=== PATIENT | male | born 1965 | race Caucasian/White ===

== ENCOUNTER 2022-11-08 13:56 | Outpatient (CLI) | payer BC, SELFPAY | END 2022-11-08 13:57 | disposition home or self-care (01) | PROVIDERS: PCP Family Medicine; Visit Provider Family Medicine | DX: Z00.00 Encounter for general adult medical examination without abnormal findings (principal); I10 Essential (primary) hypertension; E03.9 Hypothyroidism, unspecified | CPT/HCPCS: 80048; 84443 ==

== ENCOUNTER 2022-11-26 12:09 | Outpatient (CLI) | payer BC, SELFPAY | END 2022-11-26 12:10 | disposition home or self-care (01) | LOC: LONREF 12:10 | PROVIDERS: PCP Family Medicine; Visit Provider Family Medicine | DX: Z13.89 Encounter for screening for other disorder (principal) | CPT/HCPCS: 87086 ==

== ENCOUNTER 2023-12-16 12:55 | Outpatient (CLI) | payer BC, SELFPAY ==
--- OUTSIDE RECORDS SUMMARY | 2024-01-09 15:05 | XMS_ITS | Continuity of Care Document ---
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 It does not include entries that were removed or entered in error. 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 [facility] Diagnosis: ICD-10-CM Z71.89 Other specified counseling Active Diagnosis [facility] Diagnosis: ICD-10-CM G47.09 Other insomnia Active Diagnosis [facility] Diagnosis: ICD-10-CM Z00.00 Encntr for general adult medical exam w/o abnormal findings Active Diagnosis [facility] Diagnosis: ICD-10-CM Z79.899 Other snf (current) drug therapy Active Diagnosis [facility] Diagnosis: ICD-10-CM Z02.89 Encounter for other administrative examinations Active Diagnosis [facility] Medications Combined list of outpatient medications from [facility] and [facility] facilities.Medications provided include 1) outpatient medications from the last 15 months, and 2) patient-reported medications. Medication Details Route Status Patient Instructions Prescription Expires Prescription Number Last Dispense Date Ordering Provider Order Date Order Qty Source AMLODIPINE BESYLATE 10MG/BENAZE PRIL HCL 20MG CAP TAKE 1 CAPSULE BY MOUTH DAILY FOR HIGH BLOOD PRESSURE ORAL ACTIVE 04/01/2024 [id number] Astrid CHAVARRIA 2022 90 [facility] ASCORBIC ACID 500MG TAB TAKE TWO TABLETS BY MOUTH DAILY FOR VITAMIN C SUPPLEME NT ORAL ACTIVE 04/01/2024 [id number] Astrid CHAVARRIA 2022 200 [facility] ASCORBIC ACID TAB TAKE BY MOUTH DAILY NEEDED ORAL ACTIVE ROMARIO CAZARES 2022 [facility] LEVOTHYROXI NE NA 137MCG TAB (SYNTHROID) TAKE ONE TABLET BY MOUTH DAILY FOR HYPOTHYR OIDISM ON AN EMPTY STOMACH ORAL ACTIVE 04/01/2024 [id number] Astrid CHAVARRIA 2022 90 [facility] MULTIVITAMI N/MINERALS SENIOR FORMULA TAB TAKE 1 TABLET BY MOUTH DAILY FOR VITAMIN SUPPLEME NT ORAL ACTIVE 04/01/2024 [id number] Astrid CHAVARRIA 2022 120 [facility] MULTIVITAMI N/MINERALS SENIOR FORMULA TAB TAKE ONE TABLET BY MOUTH DAILY ORAL ACTIVE ROMARIO CAZARES 2022 [facility] NAPROXEN TAB TAKE BY MOUTH DAILY NEEDED ORAL ACTIVE ROMARIO CAZARES E 2022 [facility] TRAZODONE HCL 100MG TAB TAKE ONE TABLET BY MOUTH NIGHTLY FOR SLEEP ORAL ACTIVE 04/01/2024 [id number] Astrid CHAVARRIA 2022 90 [facility] Immunizations Combined list of available immunizations from the Department of Defense and [facility] facilities. 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 Status Comments Source INFLUENZA, INJECTABLE, QUADRIVALENT, PRESERVATIVE FREE 2021 150 complet ed [facility] INFLUENZA, INJECTABLE, QUADRIVALENT, PRESERVATIVE FREE 2020 150 complet [facility] ZOSTER RECOMBINANT 2 2020 187 complet [facility] COVID-19 (MARIZOL), VECTOR-NR, RS-AD26, PF, 0.5 ML 2020 212 complet [facility] COVID-19 (MARIZOL), VECTOR-NR, RS-AD26, PF, 0.5 ML 2020 212 complet ed [facility] INFLUENZA, INJECTABLE, MDCK, PRESERVATIVE FREE, QUADRIVALENT 2019 171 complet [facility] INFLUENZA, INJECTABLE, QUADRIVALENT, PRESERVATIVE FREE 2018 150 complet ed [facility] PNEUMOCOCCAL POLYSACCHARID E PPV23 2017 33 complet ed [facility] ZOSTER RECOMBINANT 2017 187 complet [facility] PNEUMOCOCCAL POLYSACCHARID E PPV23 2017 33 complet ed [facility] ZOSTER RECOMBINANT 1 2017 187 complet ed [facility] INFLUENZA, INJECTABLE, QUADRIVALENT, PRESERVATIVE FREE 2016 150 complet ed [facility] INFLUENZA, INJECTABLE, QUADRIVALENT, PRESERVATIVE FREE 2015 150 complet ed [facility] INFLUENZA, UNSPECIFIED FORMULATION 2014 88 complet ed [facility] TDAP 2014 115 complet ed [facility] INFLUENZA, UNSPECIFIED FORMULATION 2013 88 complet ed [facility] INFLUENZA, SEASONAL, INJECTABLE, PRESERVATIVE FREE 2012 140 complet ed [facility] Results Combined list of recent chemistry, hematology and other laboratory results from Department of Defense and Veterans Affairs, ranging from 15 months to all on record, depending upon the facility. Order Name Results Value Reference Range Date Interpretation Specimen Comments Source HEPATITIS B CORE ANTIBODY (IGM/IGG) HEPATITIS B VIRUS CORE AB [PRESENCE] IN SERUM NEGATIVE 04/01 Specimen Type: SERUM Comment: Positive ANTI-HBc(TO [facility]) will be tested for IgM antibody to Hepatitis B virus core antigen. Ordering Provider: IMANI CHAVARRIA Report Released Date/Time: Apr 01, 2023 11:18 AM Reporting Lab: [address] Performing Lab: [facility] [id number] [facility] [place] [place] MET. PANEL CREATININE [MASS/VOLUM E] IN SERUM OR PLASMA 1.1 0.5 - 1.5 04/01 Specimen Type: PLASMA Comment: Glucose results >300 mg/dL OR Total Protein >10 g/dL may interfere with Creatinine result Ordering Provider: IMANI CHAVARRIA Report Released Date/Time: Feb 23, 2023 10:53 AM Reporting Lab: [address] Performing Lab: [address] [facility] MET. PANEL UREA NITROGEN [MASS/VOLUM E] IN SERUM OR PLASMA 18 5 - 23 04/01 Specimen Type: PLASMA Comment: Glucose results >300 mg/dL OR Total Protein >10 g/dL may interfere with Creatinine result Ordering Provider: IMANI CHAVARRIA Report Released Date/Time: Feb 23, 2023 10:53 AM Reporting Lab: [address] Performing Lab: [address] [facility] [place] [place] MET. PANEL SODIUM [MOLES/VOLU ME] IN SERUM OR PLASMA 141 136 - 145 04/01 Specimen Type: PLASMA Comment: Glucose results >300 mg/dL OR Total Protein >10 g/dL may interfere with Creatinine result Ordering Provider: IMANI CHAVARRIA Report Released Date/Time: Feb 23, 2023 10:53 AM Reporting Lab: [address] Performing Lab: [address] [facility] [place] MET. PANEL POTASSIUM [MOLES/VOLU ME] IN SERUM OR PLASMA 4.6 3.5 - 5.0 04/01 Specimen Type: PLASMA Comment: Glucose results >300 mg/dL OR Total Protein >10 g/dL may interfere with Creatinine result Ordering Provider: IMANI CHAVARRIA Report Released Date/Time: Feb 23, 2023 10:53 AM Reporting Lab: [address] Performing Lab: [address] [facility] [place] MET. PANEL CHLORIDE [MOLES/VOLU ME] IN SERUM OR PLASMA 105 98 - 107 04/01 Specimen Type: PLASMA Comment: Glucose results >300 mg/dL OR Total Protein >10 g/dL may interfere with Creatinine result Ordering Provider: IMANI CHAVARRIA Report Released Date/Time: Feb 23, 2023 10:53 AM Reporting Lab: [address] Performing Lab: [address] [facility] [place] MET. PANEL CARBON DIOXIDE, TOTAL [MOLES/VOLU ME] IN SERUM OR PLASMA 29 20 - 30 04/01 Specimen Type: PLASMA Comment: Glucose results >300 mg/dL OR Total Protein >10 g/dL may interfere with Creatinine result Ordering Provider: IMANI CHAVARRIA Report Released Date/Time: Feb 23, 2023 10:53 AM Reporting Lab: [address] Performing Lab: [address] [facility] COMPREHEN RIDDHI MET. PANEL CALCIUM [MASS/VOLUM E] IN SERUM OR PLASMA 9.6 8.4 - 10.4 04/01 Specimen Type: PLASMA Comment: Glucose results >300 mg/dL OR Total Protein >10 g/dL may interfere with Creatinine result Ordering Provider: IMANI CHAVARRIA Report Released Date/Time: Feb 23, 2023 10:53 AM Reporting Lab: [address] Performing Lab: [address] [facility] COMPREHBRITTA HANNON MET. PANEL PROTEIN [MASS/VOLUM E] IN SERUM OR PLASMA 7.3 6.0 - 8.2 04/01 Specimen Type: PLASMA Comment: Glucose results >300 mg/dL OR Total Protein >10 g/dL may interfere with Creatinine result Ordering Provider: IMANI CHAVARRIA Report Released Date/Time: Feb 23, 2023 10:53 AM Reporting Lab: [address] Performing Lab: [address] [facility] COMPREHBRITTA HANNON MET. PANEL ALBUMIN [MASS/VOLUM E] IN SERUM OR PLASMA 4.1 3.5 - 5.0 04/01 Specimen Type: PLASMA Comment: Glucose results >300 mg/dL OR Total Protein >10 g/dL may interfere with Creatinine result Ordering Provider: IMANI CHAVARRIA Report Released Date/Time: Feb 23, 2023 10:53 AM Reporting Lab: [address] Performing Lab: [address] [facility] COMPREHEN SIVArcenio MET. PANEL BILIRUBIN.T OTAL [MASS/VOLUM E] IN SERUM OR PLASMA 0.5 0.1 - 1.5 04/01 Specimen Type: PLASMA Comment: Glucose results >300 mg/dL OR Total Protein >10 g/dL may interfere with Creatinine result Ordering Provider: IMANI CHAVARRIA Report Released Date/Time: Feb 23, 2023 10:53 AM Reporting Lab: [address] Performing Lab: [address] [facility] COMPREHBR[facility]TA [facility]ANNON MET. PANEL ALKALINE PHOSPHATASE [ENZYMATIC ACTIVITY/VO LUME] IN SERUM OR PLASMA 87 40 - 134 04/01 Specimen Type: PLASMA Comment: Glucose results >300 mg/dL OR Total Protein >10 g/dL may interfere with Creatinine result Ordering Provider: IMANI CHAVARRIA Report Released Date/Time: Feb 23, 2023 10:53 AM Reporting Lab: [address] Performing Lab: [address] [facility] COMPREHBRITTA HANNON MET. PANEL ASPARTATE AMINOTRANSF ERASE [ENZYMATIC ACTIVITY/VO LUME] IN SERUM OR PLASMA 21 5 - 40 04/01 Specimen Type: PLASMA Comment: Glucose results >300 mg/dL OR Total Protein >10 g/dL may interfere with Creatinine result Ordering Provider: IMANI CHAVARRIA Report Released Date/Time: Feb 23, 2023 10:53 AM Reporting Lab: [address] Performing Lab: [address] [facility] COMPREHBRITTA HANNON MET. PANEL ALANINE AMINOTRANSF ERASE [ENZYMATIC ACTIVITY/VO LUME] IN SERUM OR PLASMA 18 0 - 55 04/01 Specimen Type: PLASMA Comment: Glucose results >300 mg/dL OR Total Protein >10 g/dL may interfere with Creatinine result Ordering Provider: IMANI CHAVARRIA Report Released Date/Time: Feb 23, 2023 10:53 AM Reporting Lab: [address] Performing Lab: [place] [id number] [facility] COMPREHEN SIVE MET. PANEL GLUCOSE [MASS/VOLUM E] IN SERUM OR PLASMA 108 70 - 180 04/01 Specimen Type: PLASMA Comment: Glucose results >300 mg/dL OR Total Protein >10 g/dL may interfere with Creatinine result Ordering Provider: IMANI CHAVARRIA Report Released Date/Time: Feb 23, 2023 10:53 AM Reporting Lab: [facility] [address] [facility] Performing Lab: [facility] [address] [facility] COMPREHEN [place] MET. PANEL GLOMERULAR FILTRATION RATE/1.73 SQ M.PREDICTED [VOLUME RATE/AREA] IN SERUM, PLASMA OR BLOOD BY CREATININE- BASED FORMULA (CKD-EPI 2020) 79 60 04/01 Specimen Type: PLASMA Comment: Glucose results >300 mg/dL OR Total Protein >10 g/dL may interfere with Creatinine result Ordering Provider: IMANI CHAVARRIA Report Released Date/Time: Feb 23, 2023 10:53 AM Reporting Lab: [facility] [address] [facility] Performing Lab: [facility] [address] [facility] LIPID PANEL CHOLESTEROL [MASS/VOLUM E] IN SERUM OR PLASMA 211 <199 - 199 04/01 H Specimen Type: PLASMA No comment entered. Ordering Provider: IMANI CHAVARRIA Report Released Date/Time: Feb 23, 2023 10:53 AM Reporting Lab: [facility] [address] [facility] Performing Lab: [facility] [address] [facility] LIPID PANEL CHOLESTEROL IN HDL [MASS/VOLUM E] IN SERUM OR PLASMA 50 40 04/01 Specimen Type: PLASMA No comment entered. Ordering Provider: IMANI CHAVARRIA Report Released Date/Time: Feb 23, 2023 10:53 AM Reporting Lab: [facility] [address] [facility] Performing Lab: [facility] [address] [facility] LIPID PANEL CHOLESTEROL IN LDL [MASS/VOLUM E] IN SERUM OR PLASMA BY CALCULATION 128 <99 - 99 04/01 H Specimen Type: PLASMA No comment entered. Ordering Provider: IMANI CHAVARRIA Report Released Date/Time: Feb 23, 2023 10:53 AM Reporting Lab: [address] Performing Lab: [facility] [address] [place] [address] [facility] LIPID PANEL TRIGLYCERID E [MASS/VOLUM E] IN SERUM OR PLASMA 169 0 - 199 04/01 Specimen Type: PLASMA No comment entered. Ordering Provider: IMANI CHAVARRIA Report Released Date/Time: Feb 23, 2023 10:53 AM Reporting Lab: [address] Performing Lab: [address] [facility] CBC ([id number]) IMMATURE GRANULOCYTE S/100 LEUKOCYTES IN BLOOD 0.3 <0.6 - 0.6 04/01 Specimen Type: BLOOD No comment entered. Ordering Provider: IMANI CHAVARRIA Report Released Date/Time: Feb 23, 2023 10:53 AM Reporting Lab: [address] Performing Lab: [address] [facility] CBC ([id number]) IMMATURE GRANULOCYTE S [#/VOLUME] IN BLOOD 0.02 <0.10 - 0.10 04/01 Specimen Type: BLOOD No comment entered. Ordering Provider: IMANI CHAVARRIA Report Released Date/Time: Feb 23, 2023 10:53 AM Reporting Lab: [address] Performing Lab: [address] [facility] CBC ([id number]) LEUKOCYTES [#/VOLUME] IN BLOOD BY AUTOMATED COUNT 6.20 4.0 - 11.0 04/01 Specimen Type: BLOOD No comment entered. Ordering Provider: IMANI CHAVARRIA Report Released Date/Time: Feb 23, 2023 10:53 AM Reporting Lab: [facility] [address] [facility] Performing Lab: [facility] [address] [facility] CBC ([id number]) ERYTHROCYTE S [#/VOLUME] IN BLOOD BY AUTOMATED COUNT 5.03 4.60 - 6.20 04/01 Specimen Type: BLOOD No comment entered. Ordering Provider: IMANI CHAVARRIA Report Released Date/Time: Feb 23, 2023 10:53 AM Reporting Lab: [facility] [address] [facility] Performing Lab: [facility] [address] [facility] CBC ([id number]) HEMOGLOBIN [MASS/VOLUM E] IN BLOOD 15.5 13.5 - 17.9 04/01 Specimen Type: BLOOD No comment entered. Ordering Provider: IMANI CHAVARRIA Report Released Date/Time: Feb 23, 2023 10:53 AM Reporting Lab: [facility] [address] [facility] Performing Lab: [facility] [address] [facility] CBC ([id number]) HEMATOCRIT [VOLUME FRACTION] OF BLOOD BY AUTOMATED COUNT 47.2 41.0 - 54.0 04/01 Specimen Type: BLOOD No comment entered. Ordering Provider: IMANI CHAVARRIA Report Released Date/Time: Feb 23, 2023 10:53 AM Reporting Lab: [facility] [address] [facility] Performing Lab: [facility] [address] [facility] CBC ([id number]) MCV [ENTITIC VOLUME] BY AUTOMATED COUNT 93.8 80.0 - 100.0 04/01 Specimen Type: BLOOD No comment entered. Ordering Provider: IMANI CHAVARRIA Report Released Date/Time: Feb 23, 2023 10:53 AM Reporting Lab: [facility] [address] [facility] Performing Lab: [facility] [address] [facility] CBC ([id number]) MCH [ENTITIC MASS] BY AUTOMATED COUNT 30.8 27.0 - 33.0 04/01 Specimen Type: BLOOD No comment entered. Ordering Provider: IMANI CHAVARRIA Report Released Date/Time: Feb 23, 2023 10:53 AM Reporting Lab: [address] Performing Lab: [address] [facility] CBC ([id number]) MCHC [MASS/VOLUM E] BY AUTOMATED COUNT 32.8 32.0 - 36.5 04/01 Specimen Type: BLOOD No comment entered. Ordering Provider: IMANI CHAVARRIA Report Released Date/Time: Feb 23, 2023 10:53 AM Reporting Lab: [address] Performing Lab: [address] [facility] CBC ([id number]) PLATELETS [#/VOLUME] IN BLOOD BY AUTOMATED COUNT 224 150 - 450 04/01 Specimen Type: BLOOD No comment entered. Ordering Provider: IMANI CHAVARRIA Report Released Date/Time: Feb 23, 2023 10:53 AM Reporting Lab: [address] Performing Lab: [address] [facility] CBC ([id number]) ERYTHROCYTE DISTRIBUTIO N WIDTH [RATIO] BY AUTOMATED COUNT 12.7 11.5 - 14.5 04/01 Specimen Type: BLOOD No comment entered. Ordering Provider: IMANI CHAVARRIA Report Released Date/Time: Feb 23, 2023 10:53 AM Reporting Lab: [address] Performing Lab: [address] [facility] CBC ([id number]) PLATELET MEAN VOLUME [ENTITIC VOLUME] IN BLOOD BY AUTOMATED COUNT 9.8 7.4 - 10.4 04/01 Specimen Type: BLOOD No comment entered. Ordering Provider: IMANI CHAVARRIA Report Released Date/Time: Feb 23, 2023 10:53 AM Reporting Lab: [address] Performing Lab: [facility] [address] [facility] CBC ([id number]) LYMPHOCYTES /100 LEUKOCYTES IN BLOOD BY AUTOMATED COUNT 22.6 15.0 - 45.0 04/01 Specimen Type: BLOOD No comment entered. Ordering Provider: IMANI CHAVARRIA Report Released Date/Time: Feb 23, 2023 10:53 AM Reporting Lab: [facility] [address] [facility] Performing Lab: [facility] [address] [facility] CBC ([id number]) LYMPHOCYTES [#/VOLUME] IN BLOOD BY AUTOMATED COUNT 1.40 1.00 - 4.00 04/01 Specimen Type: BLOOD No comment entered. Ordering Provider: IMANI CHAVARRIA Report Released Date/Time: Feb 23, 2023 10:53 AM Reporting Lab: [facility] [address] [facility] Performing Lab: [facility] [address] [facility] CBC ([id number]) MONOCYTES/1 00 LEUKOCYTES IN BLOOD BY AUTOMATED COUNT 6.8 2.0 - 12.0 04/01 Specimen Type: BLOOD No comment entered. Ordering Provider: IMANI CHAVARRIA Report Released Date/Time: Feb 23, 2023 10:53 AM Reporting Lab: [facility] [address] [facility] Performing Lab: [facility] [address] [facility] CBC ([id number]) MONOCYTES [#/VOLUME] IN BLOOD BY AUTOMATED COUNT 0.42 0.10 - 1.00 04/01 Specimen Type: BLOOD No comment entered. Ordering Provider: IMANI CHAVARRIA Report Released Date/Time: Feb 23, 2023 10:53 AM Reporting Lab: [facility] [address] [facility] Performing Lab: [facility] [address] [facility] CBC ([id number]) EOSINOPHILS /100 LEUKOCYTES IN BLOOD BY AUTOMATED COUNT 4.7 <6.0 - 6.0 04/01 Specimen Type: BLOOD No comment entered. Ordering Provider: IMANI CHAVARRIA Report Released Date/Time: Feb 23, 2023 10:53 AM Reporting Lab: [address] Performing Lab: [facility] [address] [place] [address] [facility] CBC ([id number]) EOSINOPHILS [#/VOLUME] IN BLOOD BY AUTOMATED COUNT 0.29 <0.50 - 0.50 04/01 Specimen Type: BLOOD No comment entered. Ordering Provider: IMANI CHAVARRIA Report Released Date/Time: Feb 23, 2023 10:53 AM Reporting Lab: [address] Performing Lab: [address] [facility] CBC ([id number]) BASOPHILS/1 00 LEUKOCYTES IN BLOOD BY AUTOMATED COUNT 0.5 <2.0 - 2.0 04/01 Specimen Type: BLOOD No comment entered. Ordering Provider: IMANI CHAVARRIA Report Released Date/Time: Feb 23, 2023 10:53 AM Reporting Lab: [address] Performing Lab: [address] [facility] CBC ([id number]) BASOPHILS [#/VOLUME] IN BLOOD BY AUTOMATED COUNT 0.03 <0.20 - 0.20 04/01 Specimen Type: BLOOD No comment entered. Ordering Provider: IMANI CHAVARRIA Report Released Date/Time: Feb 23, 2023 10:53 AM Reporting Lab: [address] Performing Lab: [facility] [address] [place] [address] [facility] CBC ([id number]) NEUTROPHILS /100 LEUKOCYTES IN BLOOD BY AUTOMATED COUNT 65.1 40.0 - 80.0 04/01 Specimen Type: BLOOD No comment entered. Ordering Provider: IMANI CHAVARRIA Report Released Date/Time: Feb 23, 2023 10:53 AM Reporting Lab: [address] Performing Lab: [facility] [address] [facility] CBC ([id number]) NEUTROPHILS [#/VOLUME] IN BLOOD BY AUTOMATED COUNT 4.04 2.00 - 7.70 04/01 Specimen Type: BLOOD No comment entered. Ordering Provider: IMANI CHAVARRIA Report Released Date/Time: Feb 23, 2023 10:53 AM Reporting Lab: [address] Performing Lab: [address] [facility] CBC ([id number]) NUCLEATED ERYTHROCYTE S/100 LEUKOCYTES [RATIO] IN BLOOD BY AUTOMATED COUNT 0.00 <0 - 0 04/01 Specimen Type: BLOOD No comment entered. Ordering Provider: IMANI CHAVARRIA Report Released Date/Time: Feb 23, 2023 10:53 AM Reporting Lab: [address] Performing Lab: [address] [facility] TSH THYROTROPIN [UNITS/VOLU ME] IN SERUM OR PLASMA 2.00 0.35 - 4.94 04/01 Specimen Type: SERUM Comment: Total Protein results > 12 OR < 3 g/dL may interfere with TSH result Ordering Provider: IMANI CHAVARRIA Report Released Date/Time: Mar 31, 2023 08:00 PM Reporting Lab: [address] Performing Lab: [address] [facility] Vital Signs Combined list of inpatient and outpatient Vital Signs from Department of Defense and Veterans Affairs, ranging from 12 months to all on record, depending upon the facility. Vital Sign Value Date Comments Source Encounters Combined list of: 1) Encounters from Department of Veterans Affairs facilities going back up to thelast 18 months. 2) Encounters from the Department of [facility] facilities going back up to 280 months. Location Location Details Encounter Type Encounter Number Reason For Visit Attending Provider ADM Date DC Date Status Disposition Source [facility] Outpatient Encounter [id number] Diagnos is: ICD-10- CM Z02.89 Encount er for other adminis trative examina tions<b r/> Isiah LYON PV 10/18 [facility] Outpatient Encounter [id number] 03/23 [facility] HC PRO PHONE CALL 11-20 MIN [id number] Diagnos is: ICD-10- CM Z79.899 Other snf (curren t) drug therapy
LENKA CAZARES 03/30 [facility] Outpatient Encounter [id number] 04/01 [facility] ELECTROCAR DIOGRAM COMPLETE [id number] Diagnos is: ICD-10- CM Z00.00 Encntr for general adult medical exam w/o abnorma l finding s
ZACK WEST 04/01 [facility] Outpatient Encounter [id number] Diagnos is: ICD-10- CM Z00.00 Encntr for general adult medical exam w/o abnorma l finding s
RACIEL CHAVARRIA 04/01 [facility] Outpatient Encounter [id number] 04/01 [facility] Outpatient Encounter [id number] GUILLERMO RAMIREZ 04/01 [facility] Outpatient Encounter [id number] 04/01 [facility] Outpatient Encounter [id number] 04/01 [facility] Outpatient Encounter [id number] 04/01 [facility] Outpatient Encounter [id number] 04/11 [facility] Outpatient Encounter [id number] 04/13 [facility] HC PRO PHONE CALL 5-10 MIN [id number] Diagnos is: ICD-10- CM G47.09 Other insomni a
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 Social History Type Response Date Comment Sourc e Tobacco smoking status NHIS [place]-TOBACCO USER SOME DAYS 04/01/2023 [facility] History of tobacco use [place]-TO[place] DOESNT USE WI 30 MIN WAKEUP 04/01/2023 [facility]
--- OUTSIDE RECORDS SUMMARY | 2024-01-09 15:05 | XMS_ITS | Clinical Summary ---
Author Organization [email or web address] [facility] Address [place], [place] [address] Care Team Providers Care Dishwasher Preparer Name Role Phone Julio Travis MD Primary Care Provider [phone] Allergies No known active allergies Medications Medication Sig Dispensed Refills Start Date End Date Status ascorbic acid, vitamin C, (VITAMIN C) 1,000 mg tablet Take 1,000 mg by mouth once daily. Active eszopiclone (LUNESTA) 3 mg tablet Take 1 tablet by mouth daily at bedtime as needed for occasional use only. Must last atleast for 30 days 30 tablet 2 01/16/2018 Active amLODIPine-benazepr il (LOTREL) 10-20 mg capsule Take 1 capsule by mouth once daily. 90 capsule 3 02/02/2018 Active levothyroxine (SYNTHROID) 137 mcg tablet Take 137 mcg by mouth. 05/12/2021 Active traMADoL (Ultram) 50 mg tabletIndications:A cute left ankle pain Take 1 Tablet (50 mg) by mouth every 6 hours if needed for Pain. 8 Tablet 07/21/2022 Active naproxen (NAPROSYN) 500 mg tabletIndications:A cute left ankle pain Take 1 Tablet (500 mg) by mouth every 12 hours if needed for Pain. 15 Tablet 07/21/2022 Active Active Problems Problem Noted Date Diagnosed Date Vasovagal syncope 05/25/2017 Altered mental state 05/25/2017 Medial meniscus tear Overview: left knee--3 weeks Hearing loss in right ear Unspecified essential hypertension Patellar pain Overview: left ED (erectile dysfunction) ED (erectile dysfunction) Overview: Levitra Cervical pain (neck) Overview: present for 1 1/2 years Thoracic spine pain Overview: present for 7 years Otitis media Overview: zpack Pain, upper back Overview: left upper thoracic--paraspinal Vesicular rash Overview: Lotrisone cream Cellulitis Overview: left flank---Keflex Immunizations Name Administration Dates Next Due Tdap 10/25/2014 Family History Relation Name Status Comments Father pt adopted Social History Tobacco Use Types Packs/Day Years Used Date Smoking Tobacco: Former Cigarettes 1 15 0 02/15/1994 - 02/15/2009 Smokeless Tobacco: Current Chew Tobacco Cessation:Counseling Given: Yes Alcohol Use Standard Drinks/Week Comments No 0 (1 standard drink = 0.6 oz pur e alcohol) Sex and Gender Information Value Date Recorded Sex Assigned at Not on file Gender Identity Not on file Sexual Orientation Not on file Obstetrics History Last Filed Vital Signs Vital Sign Reading Time Taken Comments Blood Pressure 135/77 07/21/2022 8:45 AM [facility]STED WINDER Pulse 96 07/21/2022 8:45 AM WORSTED WINDER Temperature 36.9 ??C (98.4 ??F) 07/21/2022 8:45 AM CS T Respiratory Rate 16 07/21/2022 8:45 AM WORSTED WINDER Oxygen Saturation 93% 07/21/2022 8:45 AM WORSTED WINDER Inhaled Oxygen Concentration - - Weight 96.6 kg (213 lb) 07/21/2022 8:45 AM WORSTED WINDER Height 188 cm (6' 2) 05/25/2017 9:42 PM CDT Body Mass Index 27.35 05/25/2017 9:42 PM CDT Plan of Treatment Health Maintenance Due Date Last Done Comments HIV for age 15-65 1981 Colonoscopy through age 75 2011 Lipids for age 45-75 03/16/2016 03/16/2011 Zoster (shingles) series for age 50+ (1 of 2) 2016 BMI (ht and wt on same day) for age 18+ 05/25/2018 05/25/2017 Depression screening for age 12+ 09/20/2018 09/20/2017 COVID-19 vaccine series (2 2022- season) 2023 12/19/2020 Influenza for age 50-64 03/25/2024 04/24/20 17 ([facility] Tetanus booster 10/25/2024 10/25/2014 Hepatitis C screening for age 18-79 Completed 05/27/2004 Tdap Completed 10/25/2014 Pneumococcal series for age 6-64 Aged Out No longer eligible based on patient's age to complete this topic Procedures Procedure Name Priority Date/Time Associated Diagnosis Comments LIPID PANEL W REFLEX MEASURED LDL Routine 03/16/2011 9:09 AM CDT Unspecified essential hypertension EMPLOYEE ANTI HCV Routine 05/27/2004 11: 40 AM WORSTED WINDER from Last 3 Months or Most Recently Relevant to Health Maintenance Results * (ABNORMAL) LIPID PANEL W REFLEX MEASURED LDL (03/16/2011 9:09 AM CDT) CHOLESTEROL,TOTAL 190 110 - 199 mg/dL [facility] TRIGLYCERIDES 177(H) <150 mg/dL [facility] HDL CHOLESTEROL 40(L) >40 mg/dL [facility] CHOL/HDL RATIO 4.75(H) <4.51 [facility] LDL CHOLESTEROL 115 <131 mg/dL [facility] PATIENT STATUS Fasting [facility] Blood specimen (specimen) BLOOD SPECIMEN / Unknown 03/16/2011 9:09 AM CDT 03/16/2011 8:49 AM CDT Rodrigue Murguia MD CHEMISTRY [facility] [address] [place] [address] * EMPLOYEE ANTI HCV (05/27/2004 11:40 AM WORSTED WINDER) EMPLOYEE ANTI HCV Non-reacti ve [facility] 05/27/2004 11:4 0 AM WORSTED WINDER 05/27/2004 11:31 AM WORSTED WINDER Narrative [facility] - 05/29/2004 2:27 PM WORSTED WINDER Testing Performed By [place], [place] Doctor Unknown SEND OUTS [facility] [address] [place] [address] from Last 3 Months or Most Recently Relevant to Health Maintenance Advance Directives * Full Code (Latest Code Status on File) Date Activated Date Inactivated Comments 05/25/2017 8:31 PM 05/26/2017 7:22 PM Care Teams Dishwasher Preparer Relationship Specialty Start Date End Date Julio Travis MD [address] [place], [place] [address] [address] PCP - General Family Practice 05/17/19
--- OUTSIDE RECORDS SUMMARY | 2024-01-09 15:05 | XMS_ITS | Clinical Summary ---
Author Organization [facility] Address [address], [place] [address] Care Team Providers Care Airfreight Operations Agent Name Role Phone Found, No Pcp MD Primary Care Provider Unavailab le Source Comments You are receiving this document as you are listed as the primary care provider,follow-up provider, or the patient has been referred to you for consultation.This is in compliance with the Medicare and[facility] E[employer] Incentive Program,which states Providers who transition their patient to another setting of careor provider of care or refers their patient to another provider of care shouldprovide summary care record for each transition of care or referral. [employer] Allergies No known active allergies Medications Medication Sig Dispensed Refills Start Date End Date Status fexofenadine/pseudoeph edrine (ERNST-D ALLERGY & CONGESTION) 60-120 MG tablet Take 1 Tablet by mouth daily. 03/12/2006 Active Multiple Vitamins-Minerals ([facility] DAILY MULTIPLE FOR MEN) Take 1 Tablet by mouth daily. Active levothyroxine (SYNTHROID) 137 MCG tablet Take 1 Tablet (137 mcg) by mouth daily. 05/12/2021 Active amLODIPine-benazepril (LOTREL) 10-20 MG capsule Take 1 Capsule by mouth daily. 05/18/2021 Active naproxen (NAPROSYN) 500 MG tablet Take 1 Tablet (500 mg) by mouth every 12 hours as needed. 07/21/2022 Active guaiFENesin (MUCINEX) 600 MG 12 hour release tablet Take 2 Tablets (1,200 mg) by mouth two times daily as needed for Congestion. Active ALBUterol sulfate HFA 108 (90 Base) MCG/ACT inhalerIndications:Cou gh, unspecified type,Wheezing,Acute bronchitis, unspecified organism Inhale 1-2 Puffs every 4 hours as needed for Wheezing. 1 Each 04/08/2023 Active amoxicillin-clavulanat e (AUGMENTIN) 875-125 mg per tablet Take 1 Tablet by mouth two times a day. 04/29/2023 Active Active Problems Problem Noted Date Diagnosed Date Screen for colon cancer 05/04/2023 Colon polyps 05/04/2023 Overview: Cecal x 1 Sigmoid x 4 Immunizations Name Administration Dates Next Due Flu Vac Preserv Free (3+yrs) 04/10/2013 Influenza (Flucelvax), Prese rv Free QIV 06/02/2023,05/29/2020 Influenza IIV4 (Quadrivalent ) 0.5mL (88164) 05/12/2022,05/23/2021,05/31/2019,2016,05/12/2016 Influenza, Unspecified Formulation 04/30/2015, [place] COVID-19 Vaccine 12/19/2020,11/21/2020 PPSV23 (Pneumovax) 04/20/2018,02/13/2018 Tdap 10/25/2014 Zoster RZV (Shingrix) 04/20/2018,02/13/2018 Social History Tobacco Use Types Packs/Day Years Used Date Smoking Tobacco: Former Passive Smoke Exposure: Past Smokeless Tobacco: Current Tobacco Cessation:Ready to Q uit: Not Asked; Counseling Given: Not Answered Alcohol Use Standard Drinks/Week Comments Not Currently 0 (1 standard drink = 0.6 oz pur e alcohol) Sex and Gender Information Value Date Recorded Sex Assigned at Not on file Gender Identity Not on file Sexual Orientation Not on file Last Filed Vital Signs Vital Sign Reading Time Taken Comments Blood Pressure 98/71 05/04/2023 1:30 PM CDT Pulse 61 05/04/2023 1:30 PM CDT Temperature 36.1 ??C (97 ??F) 05/04/2023 11:52 AM CDT Respiratory Rate 16 05/04/2023 1:30 PM CDT Oxygen Saturation 96% 05/04/2023 1:30 PM CDT Inhaled Oxygen Concentration - - Weight 92.1 kg (203 lb) 04/29/2023 2:15 PM CDT Height 188 cm (6' 2) 04/29/2023 2:15 PM CDT Body Mass Index 26.06 04/29/2023 2:15 PM CDT Plan of Treatment Upcoming Encounters Date Type Department Care Team (Late st Contact Info) Description 01/09/2024 3:40 PM CDT Appointment [facility] [address] [place] [phone] Floyd Steinberg MD [address] [place] [address] Forms ([place]) Health Maintenance Due Date Last Done Comments Diabetes Screening- (based on age and BMI) 1966 Hep C Screening (Preventive Services) 1966 PSA Screening Discussion 1966 HIV Screening (Preventive Services) 1982 Adult Preventive Visit 1984 HepB (1) 1985 Cholesterol 2001 COVID-19 Vaccine (3 - 2022- season) 2023 12/19/2020, 11/21/2020 DTaP/Tdap/Td (2 - Tdap) 10/25/2024 10/25/2014 Colonoscopy 05/04/2030 05/04/2023 Pneumococcal Aged Out 04/20/2018, 02/13/2018 No lo nger eligible based on patient's age to complete this topic Zoster/Shingles Completed 04/20/2018, 02/13/2018 Influenza Completed 06/02/2023, 04/24, 05/23/2021, Additional history exists HepA Aged Out No longer eligi ble based on patient's age to complete this topic Hib Aged Out No longer eligi ble based on patient's age to complete this topic IPV (Polio) Aged Out No longer eligi ble based on patient's age to complete this topic MCV4 Aged Out No longer eligi ble based on patient's age to complete this topic Procedures Procedure Name Priority Date/Time Associated Diagnosis Comments ENDOSCOPY, COLON, SCREENING/DIAGNOSTI C Routine 05/04/2023 12:53 PM CDT Screen for colon cancer from Last 3 Months or Most Recently Relevant to Health Maintenance Results * Endoscopy, Colon, Screening/Diagnostic (05/04/2023 12:53 PM CDT) Narrative [facility] - 05/04/2023 12:53 PM CDT Kings Birch DO ? 05/04/2023 12:55 PM Colonoscopy Preop Dx: Screening Colonoscopy Postop Dx: Screening Colonoscopy Cecal Polyp Sigmoid Polyp x 4 Procedure Performed: Colonoscopy Date of Procedure: ??May 04, 2023 Surgeon: Kings Birch DO Indications: Pt presents for a screening colonoscopy. ??His last scope was over 10 years ago. ??That report is not available. ??Pt states that they are feeling well and denies hematochezia, melena, diarrhea or constipation. ??Pt denies any family history of colon cancer. Anesthesia: Demerol 75mg Versed 3mg Complications: no complications Estimated Blood Loss: ??Minimal Method: The procedure was discussed with the patient. ??Benefits were discussed as were possible complications such as COVID exposure, possible missed lesions, bleeding, perforation and medication reactions. ??The patient understood these risks ans signed a consent for the procedure. ??A timeout was performed prior to beginning the procedure. The patient was placed in a lateral recumbant position and external monitoring was attached. ??A surgical timeout was performed. ??The above anesthesia was then given. ??A rectal exam was performed which was Normal. ??A CF-TX659N colonoscope was inserted into the anus and the colon was insufflated. ??The colonoscope was then advanced to the cecum. ??This was confirmed with visualization of the appendiceal orifice and the ileocecal valve, which were photographed. ??The cecum was Normal. ?? The scope was retroflexed in the ascending colon and was Normal. ??The scope was then withdrawn slowly with careful attention given to all mucosal surfaces. ??The colonic mucosa was Normal. ??Once the rectal vault was reached, the scope was then retroflexed and the anal verge was visualized and photographed. ??The anal verge was Normal. ??The scope was straightened and the colon was desufflated. ??The scope was then withdrawn. I monitored the patient during the procedure. ??Please see the procedural flowsheet for more details. ?? The patient tolerated the procedure well and there were no complications. ??The patient was then returned to same day surgical recovery. Findings: The colon was well prepared. ??The cecum was easily reached. ??There was a small cecal polyp and 4 small sigmoid polyps which were all removed with a cold biopsy forceps. Discussion: Thank you Dr. Pelaez for this referral. ??At this time I recommend a follow up colonoscopy in 3-5 years. ??Final recommendations to be made once pathology is reviewed. If you have any questions or comments, please feel free to contact me. Kings Birch, DO 12:55 PM 05/04/2023 Vivek Pelaez MD PN GI PROCEDURE OR DERABLES PN [facility] from Last 3 Months or Most Recently Relevant to Health Maintenance Advance Directives * Full Code (Latest Code Status on File) Date Activated Date Inactivated Comments 05/04/2023 12:57 PM 05/04/2023 4:01 PM Care Teams Airfreight Operations Agent Relationship Specialty Start Date End Date Found, No Pcp, [address] [place] [address] PCP - General 01/17/18
--- OUTSIDE RECORDS SUMMARY | 2024-01-09 15:05 | XMS_ITS | Encounter Summary ---
Author Organization [employer] [employer] Address [address], [place] [address] Care Team Providers Care Senior Program Analyst Name Role Phone Found, No Pcp Primary Care Provider Unavailab le Encounter Details Date Type Department Care Team (Late st Contact Info) Description 06/28/2018 Correspondence None No Primary/Referring, Phy HEARING QUESTIONNAIRE Social History Tobacco Use Types Packs/Day Years Used Date Smoking Tobacco: Never Assessed Sex and Gender Information Value Date Recorded Sex Assigned at Not on file Gender Identity Not on file Sexual Orientation Not on file documented as of this encounter Plan of Treatment Upcoming Encounters Date Type Department Care Team (Late st Contact Info) Description 01/09/2024 3:40 PM CDT Appointment [facility] [address] [place] [phone] Floyd Steinberg MD [address] [place] [address] Forms ([place]) documented as of this encounter Visit Diagnoses Not on filedocumented in this encounter Care Teams Senior Program Analyst Relationship Specialty Start Date End Date Found, No Pcp, [address] [place] [address] PCP - General 01/17/18 documented as of this encounter
== END 2023-12-16 12:56 | disposition home or self-care (01) ==
LOC: NFLDREF 01-09 14:59
PROVIDERS: PCP Family Medicine; Referring Provider Family Medicine; Visit Provider Family Medicine
DX: Z12.5 Encounter for screening for malignant neoplasm of prostate (principal); N40.0 Benign prostatic hyperplasia without lower urinary tract symptoms
CPT/HCPCS: G0103